=== PATIENT | female | born 1985 ===

== ENCOUNTER 2017-07-29 10:29 | Emergency (ER) | payer SELFPAY ==
--- NOTE | 2017-07-29 14:05 | Emergency Department Report ---
Blank Doc - Documentation Documentation: Patient is a 32-year-old black female whose been having nausea vomiting for the past week. Patient states she has dry mouth is unable to keep down food she can drink ana amanda however. Patient states that she took one perfect test at home +1 was negative. Patient's last missed her period was over a month ago. Patient is here for concerns about dehydration and possibility of . Patiently moved to a treatment room wasn't performed la because of the nausea and vomiting as check electrolytes given her IV fluids check a blood test.
[2017-07-29] MEDS ORDERED: NACL 0.9% 1000 ML 1,000 ML IV ONE (14:06)
[2017-07-29] MEDS ORDERED: ZOFRAN IV ONE (14:06)
[2017-07-29 15:06] LABS: Alanine Aminotransferase 9 units/L (7-56); Albumin 3.6 g/dL (3.9-5); BUN/Creatinine Ratio 7; Blood Urea Nitrogen 4 mg/dL (7-17); Calcium 8.7 mg/dL (8.4-10.2); Hemolysis Index 8
--- NOTE | 2017-07-29 15:39 | Emergency Department Report ---
Vomiting/Diarrhea - HPI Chief Complaint: Abdominal Pain Stated Complaint: VOMITING W/CHEST PAIN Time Seen by Provider: 07/29/17 13:59 Duration: 1 week Severity: moderate Diarrhea Severity: None Pain Location: Suprapubic (crampy) Pain Severity: Mild Symptoms: Yes Able to Tolerate Fluids, No Watery Diarrhea, No Bloody diarrhea, No Fever, No Recent Unusual Foods, No Recent Untreated Water, No Recent use of Antibiotics, No Family w/ Similar Symptoms, No Contacts w/ Similar Symptoms, No Rash, No Hematuria, No Recent URI Symptoms Other History: Patient is a 32-year-old black female whose been having nausea vomiting for the past week. Patient states she has dry mouth is unable to keep down food she can drink ana amanda however. Patient states that she took one perfect test at home +1 was negative. Patient's last missed her period was over a month ago. Patient is here for concerns about dehydration and possibility of . ED Review of Systems ROS: Stated complaint: VOMITING W/CHEST PAIN Other details as noted in HPI Comment: All other systems reviewed and negative ED Past Medical Hx - Past Medical History Previous Medical History?: No - Surgical History Past Surgical History?: No - Social History Smoking Status: Never Smoker Substance Use Type: None - Medications Home Medications: Home Medications Medication Instructions Recorded Confirmed Last Taken Type Ondansetron [Zofran Odt] 4 mg PO Q8HR #10 tab.rapdis 07/29/17 Unknown Rx Vomiting Diarrhea Exam - Exam General: Vital signs noted. No distress. Alert and acting appropriately. HEENT: Yes Moist Mucous Membranes, No Pharyngeal Erythema, No Pharyngeal Exudates, No Rhinorrhea, No Conjuctival Injection, No Frontal Tenderness, No Maxillary Tenderness Neck: No Adenopathy, No Rigidity Lungs: Yes Clear Lung Sounds, Yes Good Air Exchange, No Wheezes, No Stridor, No Cough, No Nasal Flaring, No Retractions, No Use of Accessory Muscles Heart exam: Regular: Yes, Murmur: No, Tachycardia: No Abdomen: Tenderness: No, Peritoneal Signs: No, Distention: No, Hyperactive Bowel sounds: No Skin exam: Rash: No, Edema: No, Normal turgor: Yes Neurologic: Alert and oriented, no deficits. Musculoskeletal: Unremarkable. ED Course Vital Signs 07/29/17 11:53 Temperature 98.6 F Pulse Rate 58 L Respiratory 18 Rate Blood Pressure 102/70 O2 Sat by Pulse 100 Oximetry ED Medical Decision Making - Lab Data Result diagrams: 07/29/17 14:30 Lab Results 07/29/17 07/29/17 Range/Units 14:30 14:30 Sodium 132 L (137-145) mmol/L Potassium 3.6 (3.6-5.0) mmol/L Chloride 96.6 L (98-107) mmol/L Carbon Dioxide 21 L (22-30) mmol/L Anion Gap 18 mmol/L BUN 4 L (7-17) mg/dL Creatinine 0.6 L (0.7-1.2) mg/dL Estimated GFR > 60 ml/min BUN/Creatinine Ratio 7 % Glucose 91 (65-100) mg/dL Calcium 8.7 (8.4-10.2) mg/dL Total Bilirubin 0.30 (0.1-1.2) mg/dL AST 12 (5-40) units/L ALT 9 (7-56) units/L Alkaline Phosphatase 55 (35-129) units/L Total Protein 7.2 (6.3-8.2) g/dL Albumin 3.6 L (3.9-5) g/dL Albumin/Globulin Ratio 1.0 % HCG, Quant 625909 H (0-4) mIU/mL - Medical Decision Making Patient squats was elevated consistent with at least over 5 weeks. Did a bedside ultrasound on the patient and the patient appeared to be approximately 7-8 weeks there was good heart tones there was no evidence of any extrauterine pathology. Was 1 single viable IUP present. Critical care attestation.: If time is entered above; I have spent that time in minutes in the direct care of this critically ill patient, excluding procedure time. ED Disposition Clinical Impression: , Nausea & vomiting Disposition: DC-01 TO HOME OR SELFCARE Is pt being admited?: No Does the pt Need Aspirin: No Condition: Stable Instructions: (ED), Morning Sickness (ED) Prescriptions: Ondansetron [Zofran Odt] 4 mg PO Q8HR #10 tab.[email or web address]
[2017-07-29 15:55] VITALS: BP 108/71
== END 2017-07-29 15:55 | disposition home or self-care (01) ==
LOC: ED 10:29
DX: O21.8 Other vomiting complicating pregnancy (principal); O26.891 Other specified pregnancy related conditions, first trimester; R68.2 Dry mouth, unspecified; Z3A.01 Less than 8 weeks gestation of pregnancy
CPT/HCPCS: 36415; 80048; 80053; 84702; 96361; 96374; 99283; J2405; J7030